=== PATIENT | male | born 1945 | race Caucasian/White ===

== ENCOUNTER 2018-11-18 07:40 | Emergency (ER) | payer SELFPAY ==
[~2018-11-18] VITALS: Ht 172.7 cm; Wt 99.8 kg
[2018-11-18 08:06] VITALS: BP 0/0
[2018-11-18] MEDS ORDERED: EPINEPHrine HCL 1 MG/10 ML SYRG IV ONE (14:08)
== END 2018-11-18 07:45 | disposition expired ==
LOC: EDBD 07:40 → ER 07:45
DX: I46.9 Cardiac arrest, cause unspecified (principal); J96.90 Respiratory failure, unspecified, unspecified whether with hypoxia or hypercapnia; E11.9 Type 2 diabetes mellitus without complications; I50.9 Heart failure, unspecified
CPT/HCPCS: 31500; 51702; 92950; 99291; J0171